=== PATIENT | female | born 1960 | race Caucasian/White ===

== ENCOUNTER 2020-02-21 16:40 | Outpatient (CLI) | payer BC, SELFPAY ==
--- NOTE | ~2020-02-21 | MM_ITS ---
EXAMINATION: MM screening [facility] BI w mandie HISTORY: Screening mammogram TECHNIQUE: Craniocaudal and mediolateral oblique 3-D tomosynthesis images were obtained and synthetic 2-D images were generated. CAD analysis was submitted and interpreted. COMPARISON: 02/13/2019, 02/08/2018, 02/16/2016, 01/28/2016 BREAST PARENCHYMAL COMPOSITION: The breasts are heterogeneously dense, which may obscure small masses . FINDINGS: There is no evidence of suspicious mass, calcification, or architectural distortion to sugg est malignancy in either breast. There has been no suspicious interval change. IMPRESSION: 1. No mammographic evidence of malignancy. 2. Recommend routine screening mammography in one year. BI-RADS Category 1: Negative Reviewed, dictated and finalized at location A. SITE SUPERVISOR
== END 2020-02-21 16:41 | disposition home or self-care (01) ==
PROVIDERS: PCP Internal Medicine; Visit Provider Obstetrics & Gynecology
DX: Z12.31 Encounter for screening mammogram for malignant neoplasm of breast (principal)
CPT/HCPCS: 77063; 77067

== ENCOUNTER 2021-02-23 08:18 | Outpatient (CLI) | payer BC, SELFPAY ==
--- NOTE | ~2021-02-23 | MM_ITS ---
EXAMINATION: MM screening [facility] BI w mandie HISTORY: Screening mammogram TECHNIQUE: Craniocaudal and mediolateral oblique 3-D tomosynthesis images were obtained and synthetic 2-D images were generated. CAD analysis was submitted and interpreted. COMPARISON: 02/21/2020, 02/13/2019 BREAST PARENCHYMAL COMPOSITION: The breasts are heterogeneously dense, which may obscure small masses . FINDINGS: There is no evidence of suspicious mass, calcification, or architectural distortion to sugg est malignancy in either breast. There has been no suspicious interval change. IMPRESSION: 1. No mammographic evidence of malignancy. 2. Recommend routine screening mammography in one year. BI-RADS Category 1: Negative Reviewed, dictated and finalized at location A. EPOINT MANAGER
== END 2021-02-23 08:19 | disposition home or self-care (01) ==
PROVIDERS: PCP Internal Medicine; Visit Provider Obstetrics & Gynecology
DX: Z12.31 Encounter for screening mammogram for malignant neoplasm of breast (principal)
CPT/HCPCS: 77063; 77067

== ENCOUNTER 2022-02-09 18:50 | Emergency (ER) | payer BC, SELFPAY ==
--- NOTE | ~2022-02-09 | XR_ITS ---
EXAM: XR shoulder LT min 2V, XR humerus LT DATE: 02/09/2022 19:28 (accession [id number]), 02/09/2022 19:27 (accession [id number]) HISTORY: fell off deck 2 days ago. pain bruising entire lt shoulder . COMPARISON: None available. FINDINGS: Decreased mineralization. Severely comminuted left femoral head fracture, with posterior a ngulation of the humeral shaft. Anterior and inferior dislocation of the humeral head relative to the glenoid. No lytic or blastic lesion. Joint spaces are maintained. No erosion or periosteal change. S oft tissues within normal limits. IMPRESSION: Severely comminuted left humeral head fracture. Anteroinferior humeral dislocation. Reviewed, dictated and finalized at location K. IMPRESSION: Severely comminuted left humeral head fracture. Anteroinferior moshe ral dislocation.
[2022-02-09 18:59] VITALS: BP 126/86; PULSE 115; RESP 16; TEMP 36.7; O2SAT 100
--- NOTE | 2022-02-09 19:25 | ED.UPPEXIN ---
HPI - Extremity Injury (Upper) General Chief Complaint: Extremity Injury, Upper Stated Complaint: left arm pain Time Seen by Provider: 02/09/22 19:25 Source: patient and RN notes reviewed Mode of arrival: ambulatory Limitations: no limitations History of Present Illness HPI narrative: 61-year-old female presents to the [facility] with complaints of left upper arm pain and bruising since Tuesday morning, 2 days ago. Patient reports that she tripped and had a ground level fall with an outstretched arm. Denies hitting head. No loss of consciousness. Denies any midline tenderness. No rib tenderness. Denies abdominal pain. Has been taking Tylenol with some relief. Patient states it only hurts in the morning. Onset (ago): day(s) (2) Related Data Home Medications Medication Instructions Recorded Confirmed alendronate 70 mg tablet 70 mg PO DAILY 02/09/22 02/09/22 lisinopril 10 1 tablet PO DAILY 02/09/22 02/09/22 mg-hydrochlorothiazide 12.5 mg tablet omeprazole 20 mg capsule,delayed 20 mg PO DAILY 02/09/22 02/09/22 release Allergies Allergy/AdvReac Type Severity Reaction Status Date / Time No Known Allergies Allergy Verified 02/09/22 19:33 Review of Systems Review of Systems: All systems reviewed & are unremarkable except as noted in HPI and below Constitutional: Constitutional: Reports no additional constitutional complaints, Denies chills and Denies fever(s) Eyes: Eyes: Reports no additional eye complaints ENT: Reports system reviewed and no additional complaints, except as documented Cardiovascular: Cardiovascular: Reports no additional cardiovascular complaints Respiratory: Respiratory: Reports no additional respiratory complaints Gastrointestinal: Gastrointestinal: Reports no additional gastrointestinal complaints Musculoskeletal: Musculoskeletal: Reports as per HPI and Reports arthralgias (Left shoulder, humeral area) Integumentary/Breasts: Skin/Breast: Reports as per HPI Neurologic: Reports system reviewed and no additional complaints, except as documented, Denies focal weakness, Denies numbness and Denies weakness Psychiatric: Psychiatric: Reports no additional psychiatric complaints Allergic/Immunologic: Allergic/Immunologic: Reports no additional allergic/immunologic complaints [facility] Past Medical History Medical History (Updated 02/09/22 @ 20:13 by Teressa Dickens, HATTIE) Fracture of humeral head, left, closed History of high blood pressure Osteoporosis Social History Social History Gender identity (if verbalized by the patient): Female Comments At the time of my signature, I reviewed and agree with the nursing past medical, surgical, social, and family history. There is no relevant family history pertinent to the patient complaint. Exam Const: General: healthy appearing, no acute distress, alert and well nourished Nutritional Appearance: well nourished Orientation/consciousness: patient oriented x3 Limitations: no limitations HENMT: Head: normal to inspection Ears: external ears normal Eyes: General: appearance normal, both eyes and all related structures Pupils: Equal, round and reactive pupils present Neck: Neck: normal visual inspection, no lymphadenopathy and no meningeal signs Chest: Chest palpation & inspection: normal inspection of the chest Resp: Effort & Inspection: normal respiratory effort and no use of accessory muscles Auscultation: clear to auscultation bilaterally, no crackles, no rales, no rhonchi and no wheezes Cardio: Rate: regular rate Rhythm: regular rhythm Back/Spine/Pelvis: Cervical Spine: normal cervical lordosis, cervical ROM normal, No cervical muscular tenderness, No cervical spasm and No Cervical spine tenderness Thoracic/Lumbar Spine: thoracic and lumbar spine normal to inspection, No paraspinal muscle tenderness, No thoracic spinal tenderness and No lumbar spinal tenderness Skin: Gen
== END 2022-02-09 20:20 | disposition home or self-care (01) ==
PROVIDERS: Emergency Provider Nurse Practitioner; PCP Internal Medicine
DX: S42.202A Unspecified fracture of upper end of left humerus, initial encounter for closed fracture (principal); W01.0XXA Fall on same level from slipping, tripping and stumbling without subsequent striking against object, initial encounter; I10 Essential (primary) hypertension; M81.0 Age-related osteoporosis without current pathological fracture
CPT/HCPCS: 73030; 73060; 99214; A4565; G0463

== ENCOUNTER 2022-08-12 08:52 | Outpatient (CLI) | payer BC, SELFPAY ==
--- NOTE | ~2022-08-12 | MM_ITS ---
EXAMINATION: MM screening [facility] BI w mandie HISTORY: Screening mammogram TECHNIQUE: Craniocaudal and mediolateral oblique 3-D tomosynthesis images were obtained and synthetic 2-D images were generated. CAD analysis was submitted and interpreted. COMPARISON: 02/23/2021, 02/21/2020, 02/13/2019 BREAST PARENCHYMAL COMPOSITION: The breasts are heterogeneously dense, which may obscure small masses . FINDINGS: No suspicious mass, calcification, or architectural distortion are identified in either nasreen ast to suggest malignancy. There has been no suspicious interval change. IMPRESSION: 1. No mammographic evidence of malignancy. 2. Recommend routine screening mammography in one year. BI-RADS Category 1: Negative Reviewed, dictated and finalized at location A.
== END 2022-08-12 08:53 | disposition home or self-care (01) ==
LOC: ANHIMG 08:53
PROVIDERS: PCP Internal Medicine; Visit Provider Obstetrics & Gynecology
DX: Z12.31 Encounter for screening mammogram for malignant neoplasm of breast (principal)
CPT/HCPCS: 77063; 77067

== ENCOUNTER 2023-08-31 16:09 | Outpatient (CLI) | payer BC, SELFPAY ==
--- NOTE | ~2023-08-31 | MM_ITS ---
EXAMINATION: MM screening [facility] BI w mandie HISTORY: Screening mammogram TECHNIQUE: Craniocaudal and mediolateral oblique 3-D tomosynthesis images were obtained and synthetic 2-D images were generated. CAD analysis was submitted and interpreted. COMPARISON: 08/12/2022, 02/23/2021, 02/21/2020 BREAST PARENCHYMAL COMPOSITION:Dense: The breasts are heterogeneously dense, which may obscure small masses. FINDINGS: No suspicious mass, calcification, or architectural distortion are identified in either nasreen ast to suggest malignancy. There has been no suspicious interval change. IMPRESSION: No mammographic evidence of malignancy. Recommend routine screening mammography in one year. BI-RADS Category 1: Negative Reviewed, dictated and finalized at location .
== END 2023-08-31 16:10 | disposition home or self-care (01) ==
LOC: ANHIMG 16:12
PROVIDERS: PCP Internal Medicine; Visit Provider Obstetrics & Gynecology
DX: Z12.31 Encounter for screening mammogram for malignant neoplasm of breast (principal)
CPT/HCPCS: 77063; 77067

== ENCOUNTER 2024-05-10 01:17 | Day surgery (SDC) | payer BC, SELFPAY ==
[2024-05-01 13:19] VITALS: BMI 26.2
--- NOTE | 2024-05-07 10:53 | PC.NURSE ---
Patient called about prep instructions- reviewed instructions with pt. 05/07/24.
--- OUTSIDE RECORDS SUMMARY | 2024-05-10 01:20 | XMS_ITS | Clinical Summary ---
Author Organization [facility] Address [address] [place] [address] Care Team Providers Care Robotic Welder Name Role Phone Marilyn Khalil MD Primary Care Provider [phone]- [phone] Allergies No known active allergies Medications lisinopril-hydr oCHLOROthiazide (ZESTORETIC) 10-12.5 mg per tabletIndicatio ns:hypertension Take 1 tablet by mouth every morning 01/19/2022 Active omeprazole (PriLOSEC) 20 mg capsuleIndicati ons:Treatment of Non-Bleeding Gastric Disorder Take 1 capsule (20 mg total) by mouth every morning 01/19/2022 Active alendronate (FOSAMAX) 70 mg tablet Take 1 tablet (70 mg total) by mouth every 7 days Pt takes on Sundays01/19/2022 Active aspirin 81 mg enteric coated tabletIndicatio ns:Deep Vein Thrombosis Prevention Take 1 tablet (81 mg total) by mouth 2 (two) times a day for 14 days 28 tablet 02/27/2022 Active celecoxib (CeleBREX) 200 mg capsuleIndicati ons:Pain Take 1 capsule (200 mg total) by mouth 2 (two) times a day 60 capsule 02/27/2022 Active docusate sodium (COLACE) 100 mg capsuleIndicati ons:constipatio n Take 1 capsule (100 mg total) by mouth 2 (two) times a day 30 capsule 1 02/27/2022 Active oxyCODONE (ROXICODONE) 5 mg immediate release tabletIndicatio ns:Pain Take 1 tablet (5 mg total) by mouth every 4 (four) hours as needed for pain 40 tablet 02/27/2022 Active Active Problems Problem Noted Date Diagnosed Date Closed 3-part fracture of pr oximal humerus, left, initial encounter 02/26/2022 Closed fracture of left proximal humerus 022 Overview (02/17/2022): Added automatically from request for surgery [id number] Immunizations Name Administration Dates Next Due Influenza, Unspecified 02/10/2022 Medical History Medical History Date Comments Migraines Family History Medical History Relation Name Comments Diabetes Mother Heart disease Mother Hypertension Mother Relation Name Status Comments Mother Social History Tobacco Use Types Packs/Day Years Used Date Smoking Tobacco: Former Cigarettes 0.3 31 1 8 - 2019 Smokeless Tobacco: Never Tobacco Cessation:Counseling Given: Not Answered AUDIT-C Answer Date Recorded Q1: How often do you have a drink containing alc ohol? 2-4 times a month 02/26/2022 Q2: How many drinks containi ng alcohol do you have on a typical day when you are drinking? 1 or 2 02/26/2022 Q3: How often do you have si x or more drinks on one occasion? 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 SAFETY DISPATCHER Gender Identity Female 01/20/2023 3:26 PM CDT Sexual Orientation Straight 01/20/2023 3: 26 PM CDT Obstetrics History Last Filed Vital Signs Vital Sign Reading Time Taken Comments Blood Pressure 110/65 02/27/2022 8:18 AM PUBLIC SAFETY DISPATCHER Pulse 85 02/27/2022 8:18 AM PUBLIC SAFETY DISPATCHER Temperature 36.9 ??C (98.4 ??F) 02/27/2022 4:13 AM CS T Respiratory Rate 16 02/27/2022 4:13 AM PUBLIC SAFETY DISPATCHER Oxygen Saturation 97% 02/27/2022 8:18 AM PUBLIC SAFETY DISPATCHER Inhaled Oxygen Concentration - - Weight 67 kg (147 lb 11.3 oz) 02/26/2022 6:00 AM PUBLIC SAFETY DISPATCHER Height 160 cm (5' 3 ) 02/26/2022 6:00 AM PUBLIC SAFETY DISPATCHER Body Mass Index 26.17 02/26/2022 6:00 AM PUBLIC SAFETY DISPATCHER Plan of Treatment Health Maintenance Due Date Last Done Comments Breast Cancer Screening-Mammogram 1962 Cervical Cancer Screening 1962 Colon Cancer Screening-Colonoscopy 1962 Depression Screening 1962 Hepatitis C Screening 1962 DTaP/Tdap/Td Vaccine (1 - Tdap) 1973 Hepatitis B Screening 1980 Regular Well Visit/Exam 18-64 1980 Zoster Vaccine (1 of 2) 2012 Covid-19 Vaccine (4 - 2023-2 5 season) 2023 04/24/2021, 10/10/2020, 09/19/2020 Influenza Vaccine (#1) 2023 , 02/09/2017 Pneumococcal vaccine <65 Aged Out No longer eligible based on patient's age to complete this topic Medical Devices Implanted Type Area Oven Heater Device Identifier Shelf Expiration Date Model / Serial / Lot [employer] 25mm Reverse Shoulder Baseplate Glenoid Trabecular Metal [id number] - [id number] Implanted:Qty: 1 on 02/26/2022 by Nate Lewis MD at [facility] Left: Shoulder [employer] [id number] 01/21/2032 [id number] / / [id number] [employer] Ncb Anatomical Shoulder 4.5mm 36mm Inverse Reverse Lock Self Tap [id number] Implanted:Qty: 1 on 02/26/2022 by Nate Lewis MD at [facility] Left: Shoulder [employer] [id number] 06/03/2026.. / / [id number] [employer] Ncb Anatomical Shoulder 4.5mm 36mm Inverse Reverse Lock Self Tap [id number] Implanted:Qty: 1 on 02/26/2022 by aNte Lewis MD at [facility] Left: Shoulder [employer] [id number] 09/23/2026..036 / / [id number] [employer] 36mm Reverse Shoulder Sphere Glenoid Trabecular Metal [id number] - [id number] Implanted:Qty: 1 on 02/26/2022 by Nate Lewis MD at [facility] Left: Shoulder [employer] [id number] 12/21/2031 [id number] / / [id number] [employer] Latitude 8-15mm Restrictor Elbow Restrictor Cement [id number] - [id number] - [id number] Implanted:Qty: 1 on 02/26/2022 by Nate Lewis MD at [facility] Left: Shoulder [employer] [id number] 12/17/2026 [id number] / [id number] / [employer] Simplex P Radiopaque Full Dose Cement Bone Sterile 6191-1-010 - [id number] Implanted:Qty: 1 on 02/26/2022 by Nate Lewis MD at [facility] Left: Shoulder [employer] [id number] 08/08/2024 6191-1-010 / / [id number] [employer] Simplex P Radiopaque Full Dose Cement Bone Sterile 6191-1-010 - [id number] Implanted:Qty: 1 on 02/26/2022 by Nate Lewis MD at [facility] Left: Shoulder [employer] [id number] 08/08/2024 6191-1-010 / / [id number] [employer] 8mm 130mm Shoulder Stem Humeral Trabecular Metal Sterile Reverse [id number] - [id number] Implanted:Qty: 1 on 02/26/2022 by Nate Lewis MD at [facility] Left: Shoulder [employer] [id number] 01/19/2032 [id number] / / [id number] [employer] 36mm Reverse Humerus 7d +0mm Offset Standard Liner Shoulder [id number] - [id number] Implanted:Qty: 1 on 02/26/2022 by Nate Lewis MD at [facility] Left: Shoulder [employer] 01/11/2027 [id number] / / [id number] Insurance ANTHEM ACCESS CHOICE ANTHEM ACCESS CHOICE Advance Directives For more information, please contact: [phone] * Full Code (Latest Code Status on File) Date Activated Date Inactivated Comments 02/26/2022 4:58 PM 02/27/2022 6:02 PM Care Teams Robotic Welder Relationship Specialty Start Date End Date Marilyn Khalil MD [address] [employer] [place] [address] PCP - General Internal Medicine 02/10/22
--- OUTSIDE RECORDS SUMMARY | 2024-05-10 01:20 | XMS_ITS | Encounter Summary ---
Author Organization [facility] Address [address] [place] [address] Care Team Providers Care Client Service Representative Name Role Phone Marilyn Khalil MD Primary Care Provider +1- [phone] Encounter Details Date Type Department Care Team (Late st Contact Info) Description 03/01/2022 Telephone [facility] [place] [facility] [address] [place] [address] Ace Rainey MD [address] [id number] Social History Tobacco Use Types Packs/Day Years Used Date Smoking Tobacco: Former Cigarettes 0.3 31 1 98 2019 Smokeless Tobacco: Never AUDIT-C Answer Date Recorded Q1: How often [...] on file Legal Sex Female 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
--- OUTSIDE RECORDS SUMMARY | 2024-05-10 01:20 | XMS_ITS | Referral Summary ---
Author Organization [facility] Address [address] [place] [address] Care Team Providers Care Stenciler Name Role Phone Marilyn Khalil MD Primary Care Provider +1- [phone] Allergies No known active allergies Medications lisinopril-hydr [...] (02/17/2022): Added automatically from request for surgery [id number] Immunizations Name Administration Dates Next Due Influenza, Unspecified 02/10/2022 Social History Tobacco Use Types Packs/Day Years Used Date Smoking Tobacco: Former Cigarettes 0.3 31 1 988 - 2019 Smokeless Tobacco: Never Tobacco Cessation:Counseling [...] on file Legal Sex Female 9:00 AM TOBACCO SIEVE OPERATOR Gender Identity Female 01/20/2023 3:26 PM CDT Sexual Orientation Straight 01/20/2023 3: 26 PM CDT Last Filed Vital Signs Vital Sign Reading Time Taken Comments Blood Pressure 110/65 02/27/2022 8:18 AM TOBACCO SIEVE OPERATOR Pulse 85 02/27/2022 8:18 AM TOBACCO SIEVE OPERATOR Temperature 36.9 ??C (98.4 ??F) 02/27/2022 4:13 AM CS T Respiratory Rate 16 02/27/2022 4:13 AM TOBACCO SIEVE OPERATOR Oxygen Saturation 97% 02/27/2022 8:18 AM TOBACCO SIEVE OPERATOR Inhaled Oxygen Concentration - - Weight 67 kg (147 lb 11.3 oz) 02/26/2022 6:00 AM TOBACCO SIEVE OPERATOR Height 160 cm (5' 3 ) 02/26/2022 6:00 AM TOBACCO SIEVE OPERATOR Body Mass Index 26.17 02/26/2022 6:00 AM TOBACCO SIEVE OPERATOR Plan of Treatment Not on file Medical Devices Implanted Type Area Access Spec Device Identifier Shelf Expiration Date Model / Serial / Lot [employer] 25mm Reverse Shoulder Baseplate Glenoid Trabecular Metal [id number] - [id number] Implanted:Qty: 1 on 02/26/2022 by Nate Lewis MD at [facility] Left: Shoulder [employer] [id number] 01/21/2032 [id number] / / [id number] [employer] Ncb Anatomical Shoulder 4.5mm 36mm Inverse Reverse Lock Self Tap - [id number] Implanted:Qty: 1 on 02/26/2022 by Nate Lewis MD at [facility] Left: Shoulder [employer] [id number] 06/03/2026.97181.036 / / [id number] [employer] Ncb Anatomical Shoulder 4.5mm 36mm Inverse Reverse Lock Self Tap - [id number] Implanted:Qty: 1 on 02/26/2022 by Nate Lewis MD at [facility] Left: Shoulder [employer] [id number] 09/23/2026.99705.036 / / [id number] [employer] 36mm Reverse Shoulder Sphere Glenoid Trabecular Metal [id number] - [id number] Implanted:Qty: 1 on 02/26/2022 by Nate Lewis MD at [facility] Left: Shoulder [employer] [id number] 12/21/2031 [id number] / / [id number] [employer] Latitude 8-15mm Restrictor Elbow Restrictor Cement [id number] - [id number] - [id number] Implanted:Qty: 1 on 02/26/2022 by Nate Lewis MD at [facility] Left: Shoulder [employer] [id number] 12/17/2026 [id number] / [id number] / [employer] Simplex P Radiopaque Full Dose Cement Bone Sterile 6191-1-010 - [id number] Implanted:Qty: 1 on 02/26/2022 by Nate Lewis MD at [facility] Left: Shoulder [employer] [id number] 08/08/2024 6191-1-010 / / [id number] [employer] Simplex P Radiopaque Full Dose Cement Bone Sterile 6191-1-010 - [id number] Implanted:Qty: 1 on 02/26/2022 by Nate Lewis MD at [facility] Left: Shoulder [employer] [id number] 08/08/2024 6191-1-010 / / [id number] [employer] 8mm 130mm Shoulder Stem Humeral Trabecular Metal Sterile Reverse [id number] - [id number] Implanted:Qty: 1 on 02/26/2022 by Nate Lewis MD at [facility] Left: Shoulder [employer] [id number] 01/19/2032 [id number] / / [id number] [employer] 36mm Reverse Humerus 7d +0mm Offset Standard Liner Shoulder [id number] - [id number] Implanted:Qty: 1 on 02/26/2022 by Nate Lewis MD at [facility] Left: Shoulder [employer] 01/11/2027 [id number] / / [id number] Insurance [employer] ANTHEM ACCESS CHOICE Advance Directives For more information, please contact: [phone] * Full Code (Latest Code Status on File) Date Activated Date Inactivated Comments 02/26/2022 4:58 PM 02/27/2022 6:02 PM Care Teams Stenciler Relationship Specialty Start Date End Date Marilyn Khalil MD [address] [employer] [place] [address] PCP - General Internal Medicine 02/10/22
--- NOTE | 2024-05-10 08:55 | P.PNAN_ITS ---
Anes - Initial Pre Proc Eval Procedure: Operation Date: 05/10/24 10:00 Proposed Procedures p Colonoscopy - Danilo Matamoros MD Date/Time: 05/10/24 08:55 Surgeon: Danilo Matamoros MD Pre Op Diagnosis: Fecal abnormalities Patient Data Age: 63 Gender: F Height: 1.6 m Weight: 67 kg Allergies Allergy/AdvReac Type Severity Reaction Status Date / Time No Known Allergies Allergy Verified 05/10/24 08:53 Home Medications ?Medication ?Instructions ?Recorded ?Confirmed ?Type alendronate 70 mg tablet 70 mg PO DAILY 02/09/22 05/10/24 History hydrocodone 5 mg-acetaminophen 325 1 tablet PO Q6H PRN pain #15 tabs 02/09/22 05/01/24 Rx mg tablet lisinopril 10 1 tablet PO DAILY 02/09/22 05/10/24 History mg-hydrochlorothiazide 12.5 mg tablet omeprazole 20 mg capsule,delayed 20 mg PO DAILY 02/09/22 05/10/24 History release Patient hx anesthesia problems: none Family hx anesthesia problems: none Results Review: All pre-operative results and documents have been reviewed as part of the pre- operative evaluation. [facility] Past Medical History Medical History (Updated 05/10/24 @ 09:25 by Danilo Matamoros MD) GERD (gastroesophageal reflux disease) Hypertension Fracture of humeral head, left, closed Osteoporosis Social History Social History Gender identity (if verbalized by the patient): Female Spiritual care concerns: No Anes - Eval Final PreProcedure Day of Procedure 05/10/24 08:55 Patient weight: overweight Heart: regular rate and rhythm Lungs: clear to auscultation Airway: Mallampati scale class II Neurological: alert and oriented Last oral intake: >/= 8 hours ASA classification: II Emergent: no Anesthetic plan: proceed Anesthesia type and monitoring: general GIVS and standard monitoring Results Review: All pre-operative results and documents have been reviewed as part of the pre- operative evaluation. Informed Consent: The patient's anesthetic plan and its attendant risks and benefits were discussed with the patient/family/POA. Questions were solicited and answers provided to the satisfaction of the patient/family/POA.
[2024-05-10 08:56] VITALS: BP 103/67; PULSE 98; RESP 16; TEMP 36.3; O2SAT 100
[2024-05-10] MEDS: LACTATED RINGERS 1,000 ML 150 ML IV CONT (09:07)
--- NOTE | 2024-05-10 09:25 | PM.IMHP ---
H&P: HPI History of Present Illness Date/Time: 05/10/24 09:25 Chief Complaint: Screening colonoscopy Narrative: This is the patient's first colonoscopy. There are no GI symptoms and there is no family history of colorectal cancer. Review of Systems Review of Systems: All systems reviewed & are unremarkable except as noted in HPI and below PMFSH Past Medical History Medical History (Updated 05/10/24 @ 09:25 by Danilo Matamoros MD) GERD (gastroesophageal reflux disease) Hypertension Fracture of humeral head, left, closed Osteoporosis Social History Social History Gender identity (if verbalized by the patient): Female Spiritual care concerns: No Meds Home Medications and Allergies Home Medications ?Medication ?Instructions ?Recorded ?Confirmed ?Type alendronate 70 mg tablet 70 mg PO DAILY 02/09/22 05/10/24 History hydrocodone 5 mg-acetaminophen 325 1 tablet PO Q6H PRN pain #15 tabs 02/09/22 05/01/24 Rx mg tablet lisinopril 10 1 tablet PO DAILY 02/09/22 05/10/24 History mg-hydrochlorothiazide 12.5 mg tablet omeprazole 20 mg capsule,delayed 20 mg PO DAILY 02/09/22 05/10/24 History release Allergies Allergy/AdvReac Type Severity Reaction Status Date / Time No Known Allergies Allergy Verified 05/10/24 08:53 Vital Signs Vital Signs - 24 hr 05/10/24 08:56 Temperature 97.3 F L Pulse Rate 98 Respiratory Rate 16 Blood Pressure 103/67 Pulse Oximetry 100 Oxygen Delivery Room Air Exam Const: General: cooperative and healthy appearing Resp: Effort & Inspection: normal respiratory effort and able to speak in complete sentences Auscultation: clear to auscultation bilaterally Cardio: Rate: regular rate Rhythm: regular rhythm GI: Inspection: normal to inspection GI Palp: No No hepatosplenomegaly present Auscultation: normal bowel sounds Rectal Exam: deferred Skin: General skin exam: normal color Psych: Appearance: grossly normal Mental Status: mental status grossly normal Assessment and Plan Assessment and plan (1) Encounter for screening colonoscopy: Code(s): Z12.11 - Encounter for screening for malignant neoplasm of colon Status: Acute Assessment and Plan: The patient is deemed a good candidate for the procedure. Consent signed. Will proceed.
[2024-05-10 09:51] VITALS: BP 82/50; PULSE 80; RESP 21; O2SAT 99
[2024-05-10 10:01] VITALS: BP 102/65; PULSE 84; RESP 20; O2SAT 100
[2024-05-10 10:11] VITALS: BP 102/61; PULSE 83; RESP 28; O2SAT 100
== END 2024-05-10 10:25 | disposition home or self-care (01) ==
PROVIDERS: PCP Internal Medicine; Referring Provider Internal Medicine; Visit Provider Internal Medicine Gastroenterology
PROC: 0DJD8ZZ Inspection of Lower Intestinal Tract, Via Natural or Artificial Opening Endoscopic (ICD-10-PCS; CPT 45378; principal; 2024-05-10 10:00)
DX: Z12.11 Encounter for screening for malignant neoplasm of colon (principal)
CPT/HCPCS: 45378; J2003; J2704; J7120